=== PATIENT | female | born 1975 | race American Indian/Alaskan Native ===

== ENCOUNTER 2018-03-16 10:18 | Outpatient (CLI) | payer OTHER ==
--- NOTE | 2018-03-16 16:03 | Mammography Report ---
BILATERAL DIGITAL SCREENING MAMMOGRAM with CAD: 03/16/18 CLINICAL: Routine screening. COMPARISON:None available. However, a prior mammogram was apparently done 13 years ago in [facility]. FINDINGS: The breasts are heterogeneously dense, which may obscure small masses. 2 right breast masses with biopsy clips and a left upper asymmetry on the MLO view require comparison with a prior mammogram or additional imaging.No architectural distortion or suspicious calcifications. IMPRESSION: Right masses and left asymmetry requiring further evaluation. BI-RADS CATEGORY: 0 -- Additional Evaluation Required RECOMMENDATION: Comparison with a previous mammogram. We will attempt to obtain a prior mammogram for comparison. If we do not obtain a prior mammogram within 30 days, a revised report will be issued recommending a recall for additional imaging of both breasts. Please be advised that the patient should not schedule an appointment for return until adequate time (at least 2 weeks) has passed for us to obtain the prior mammogram. ACR BI-RADS MAMMOGRAPHIC CODES: 0 = Needs additional imaging evaluation; 1 = Negative; 2 = Benign; 3 = Probably benign; 4 = Suspicious; 5 = Malignant; 6 = Known biopsy-proven malignancy COMMENT: 1. Dense breast tissue, i.e., adenosis, fibrocystic changes, etc., may obscure an underlying neoplasm. 2. Approximately 10% of cancers are not detected with mammography. 3. A negative mammography report should not delay biopsy if a clinically suspicious mass is present. COMMENT: Patient follow-up letters are generated via our [employer] application.
== END 2018-03-16 10:19 | disposition home or self-care (01) ==
LOC: SPVWC 10:18
DX: Z12.31 Encounter for screening mammogram for malignant neoplasm of breast (principal)
CPT/HCPCS: 77067

== ENCOUNTER 2018-06-06 06:10 | Day surgery (SDC) | payer OTHER ==
[2018-06-06] MEDS ORDERED: LACTATED RINGERS 1,000 ML ONE (07:13)
[2018-06-06] MEDS ORDERED: XYLOCAINE MPF 2% ONE (07:24)
[2018-06-06] MEDS ORDERED: DIPRIVAN 10 MG/ML IV ONE (07:24)
[2018-06-06] MEDS ORDERED: SUBLIMAZE ONE (07:24)
[2018-06-06] MEDS ORDERED: DILAUDID IV PRN (07:34)
[2018-06-06] MEDS ORDERED: DEMEROL IV PRN (07:34)
[2018-06-06] MEDS ORDERED: NARCAN 0.4 MG/1 ML IV PRN (07:34)
[2018-06-06] MEDS ORDERED: ZOFRAN IV PRN (07:34)
[2018-06-06] MEDS ORDERED: SUBLIMAZE IV PRN (07:34)
--- NOTE | 2018-06-06 07:34 | Anesthesia Day of Surgery ---
Anesthesia Day of Surgery - Day of Surgery Patient Examined: Yes Patient H&P Reviewed: Yes Patient is NPO: Yes Beta Blockers: No Cardiac Clearance: No Pulmonary Clearance: No
--- NOTE | 2018-06-06 07:34 | Anesthesia Consultation ---
Anesthesia Consult and Med Hx Date of service: 06/06/18 - Airway Anesthetic Teeth Evaluation: Good ROM Head & Neck: Adequate Mental/Hyoid Distance: Adequate Mallampati Class: Class II Intubation Access Assessment: Good - Pulmonary Exam CTA: Yes - Cardiac Exam Cardiac Exam: RRR - Pre-Operative Health Status ASA Pre-Surgery Classification: ASA1 Proposed Anesthetic Plan: General - Central Nervous System Hx Psychiatric Problems: No - Hematic Hx Sickle Cell Disease: Yes (Trait only) - Other Systems Hx Alcohol Use: Yes (Occas) Hx Cancer: No
[2018-06-06] MEDS ORDERED: ROBINUL ONE ×2 (07:35)
[2018-06-06] MEDS ORDERED: LACTATED RINGERS 1,000 ML IV SCH (08:00)
[2018-06-06] MEDS ORDERED: MARCAINE 0.25% INFILTRATI ONE (08:31)
--- NOTE | 2018-06-06 08:36 | Short Stay Summary ---
Short Stay Documentation Date of service: 06/06/18 Narrative H&P: Pt is a 43 year old female who presents for removal of a benign vaginal polyp that was first identified on exam by her primary md. - History Principal diagnosis: Vaginal polyp H&P: obtained from office Past Medical History: No medical history Past Surgical History: No surgical history Social history: - Allergies and Medications Current Medications: Allergies No Known Allergies Allergy (Unverified 06/04/18 18:27) Home Medications Medication Instructions Recorded Confirmed Last Taken Type Naproxen [Naprosyn] 375 mg PO PRN PRN 06/04/18 06/04/18 Unknown History Vit-Fe Fumar-FA [ 1 tab PO QDAY 06/04/18 06/04/18 Unknown History Vitamin] Active Medications Fentanyl (Sublimaze) 50 mcg IV Q5MIN PRN PRN Reason: Pain , Severe (7-10) Stop: 06/06/18 20:00 Hydromorphone HCl (Dilaudid) 0.5 mg IV Q10MIN PRN PRN Reason: Pain , Severe (7-10) Stop: 06/06/18 20:00 Lactated Ringer's (Lactated Ringers) 1,000 mls @ 75 mls/hr IV DIRECT ED Meperidine HCl (Demerol) 25 mg IV ONCE PRN PRN Reason: Shivering Stop: 06/06/18 20:00 Naloxone HCl (Narcan 0.4 Mg/1 Ml) 0.1 mg IV Q2MIN PRN PRN Reason: Res Rate </= 8 or 02 SAT < 92% Ondansetron HCl (Zofran) 4 mg IV ONCE PRN PRN Reason: Nausea And Vomiting - Physical exam General appearance: no acute distress Integumentary: no rash, no growths Lungs: Clear to auscultation, Normal air movement Breasts: deferred Heart: Regular rate, Normal S1, Normal S2 Gastrointestinal: normal, normoactive bowel sounds Female Genitourinary: deferred Extremities: No edema - Brief post op/procedure progress note Date of procedure: 06/06/18 Pre-op diagnosis: Vaginal polyp Post-op diagnosis: same Procedure: Excision of vaginal polyp Anesthesia: GETA Findings: 2.5cm circular vaginal polyp protruding from right side of anterior fornix Surgeon: SHUKRI ZHANG Estimated blood loss: none Pathology: list (vaginal polyp) Specimen disposition: to lab Condition: stable - Hospital course Hospital course: unremarkable - Disposition Condition at discharge: Good Disposition: DC-01 TO HOME OR SELFCARE Short Stay Discharge Plan Activity: no restrictions Weight Bearing Status: Weight Bear as Tolerated Diet: regular Additional Instructions: nothing in the vagina for 10 days Follow up with: SHUKRI ZHANG MD [Staff Physician] - 14 Days Forms: Outpatient Surgery DC Inst. Prescriptions: Ibuprofen 800 mg PO Q6H #30 tablet HYDROcodone/ACETAMINOPHEN [Pollock 5-325 Tablet] 1 each PO Q4H #15 tablet
--- NOTE | 2018-06-06 10:13 | Operative Report ---
Operative Report Operative Report: Preoperative diagnosis: Vaginal polyp Postoperative diagnosis: Same Procedure: Excision of vaginal polyp Surgeon: Dr. Michelle Mendez Anesthesia: Mac EBL: None IV fluids: 800 mL LR Urine output: Approximately 100 mL prior to start of the procedure Specimens: Vaginal polyp Procedure: The patient was taken to the OR with IV running and in place. She was properly identified as herself. She was given anesthesia without difficulty. She was placed in dorsal lithotomy position and prepped and draped in normal sterile fashion. Her bladder was then drained of approximately 100 mL of clear urine. A weighted speculum was placed in the vagina. A narrow Sun was placed in the anterior vaginal wall. The polyp was identified and grasped with an Allis clamp. It was found to be on a small stalk. A Majo clamp was placed across the base and the polyp was excised using the Metzenbaum scissors. A single stitch of 2-0 Vicryl was placed around the excision site and the edges were cauterized with the Bovie. There was excellent hemostasis at the end of this part of the procedure. The patient was then awakened and taken recovery in stable condition. The sponge and instrument counts were correct 2.
[2018-06-06 10:16] VITALS: BP 119/79
--- NOTE | 2018-06-06 10:58 | Post Anesthesia Evaluation ---
- Post Anesthesia Evaluation Patient Participated: Yes Airway Patent: Yes Stable Respiratory Function: Yes Nausea/Vomiting: No Temp > 96.8F: Yes Pain Manageable: Yes Adequeate Hydration: Yes Anesthesia Complications: No
== END 2018-06-06 10:57 | disposition home or self-care (01) ==
LOC: OR 06:10
PROVIDERS: ATTEND Obstetrics & Gynecology
DX: N84.2 Polyp of vagina (principal); G43.909 Migraine, unspecified, not intractable, without status migrainosus; Z79.899 Other long term (current) drug therapy; Z72.89 Other problems related to lifestyle; Z98.890 Other specified postprocedural states
CPT/HCPCS: 57135; 81025; 88305; 88341; 88342; J2704; J3010; J7120

== ENCOUNTER 2021-01-13 14:39 | Emergency (ER) | payer OTHER ==
--- NOTE | 2021-01-13 16:55 | Emergency Department Report ---
ED Female HPI - General Chief complaint: GI Bleed Stated complaint: CLOT Time Seen by Provider: 01/13/21 16:44 Source: patient Mode of arrival: Ambulatory Limitations: No Limitations - History of Present Illness Initial comments: Patient is a 45-year-old female presents emergency room complaints of passing a large blood clot last night. She states that last night she went to the bathroom to urinate and did not have any difficulties. She states shortly after she felt some pressure like she needed to urinate again and went to the bathroom and that is when she passed a large clot. She states that she has been having some intermittent suprapubic pressure but denies any abd pain currently. She states previously she has not been having any vaginal bleeding. she states her last menstrual cycle was approximately 3 weeks ago states that she has a history of heavy vaginal bleeding and irregular cycles. Patient states that she is currently on tamoxifen for breast cancer. She states that she has an appointment on 01/15/[address] Mendez DIRECT SALES REPRESENTATIVE for tubal ligation and uterine ablation. She denies any fever, nausea, vomiting, diarrhea, urinary symptoms, vaginal discharge, back pain. No allergies to medications. - Related Data Home Medications Medication Instructions Recorded Confirmed Last Taken Ferrous Sulfate [Iron 325 MG] 325 mg PO BID 01/13/21 01/13/21 Unknown Tamoxifen Citrate 20 mg PO DAILY 01/13/21 01/13/21 Unknown Allergies Allergy/AdvReac Type Severity Reaction Status Date / Time No Known Allergies Allergy Verified 01/13/21 17:04 ED Review of Systems ROS: Stated complaint: CLOT Other details as noted in HPI Comment: All other systems reviewed and negative ED Past Medical Hx - Past Medical History Hx Sickle Cell Disease: Yes (Trait only) Hx Headaches / Migraines: Yes (Migraines) - Surgical History Hx Breast Surgery: Yes (Right breast cyst removal) - Social History Smoking Status: Never Smoker - Medications Home Medications: Home Medications Medication Instructions Recorded Confirmed Last Taken Type Ferrous Sulfate [Iron 325 MG] 325 mg PO BID 01/13/21 01/13/21 Unknown History Tamoxifen Citrate 20 mg PO DAILY 01/13/21 01/13/21 Unknown History ED Physical Exam - General Limitations: No Limitations General appearance: alert, in no apparent distress - Head Head exam: Present: atraumatic, normocephalic - Eye Eye exam: Present: normal appearance - ENT ENT exam: Present: mucous membranes moist - Respiratory Respiratory exam: Present: normal lung sounds bilaterally. Absent: respiratory distress, wheezes, rales, rhonchi, stridor, chest wall tenderness, accessory muscle use, decreased breath sounds, prolonged expiratory - Cardiovascular Cardiovascular Exam: Present: regular rate, normal rhythm, normal heart sounds. Absent: systolic murmur, diastolic murmur, rubs, gallop - GI/Abdominal GI/Abdominal exam: Present: soft, normal bowel sounds. Absent: distended, tenderness, guarding, rebound, rigid - Neurological Exam Neurological exam: Present: alert, oriented X3 - Psychiatric Psychiatric exam: Present: normal affect, normal mood - Skin Skin exam: Present: warm, dry, intact ED Course Vital Signs 01/13/21 01/13/21 16:41 18:38 Temperature 98.9 F Pulse Rate 65 74 Respiratory 18 18 Rate Blood Pressure 151/84 Blood Pressure 148/84 [Left] O2 Sat by Pulse 100 100 Oximetry ED Medical Decision Making - Lab Data Result diagrams: 01/13/21 17:04 01/13/21 17:04 - Medical Decision Making Patient is a 45-year-old female presents emergency room complaints of passing a large blood clot last night. She states that last night she went to the bathroom to urinate and did not have any difficulties. She states shortly after she felt some pressure like she needed to urinate again and went to the bathroom and that is when she passed a large clot. She states that she has been having some intermittent suprapubic pressure but denies any abd pain currently. She states previously she has not been having any vaginal bleeding. she states her last menstrual cycle was approximately 3 weeks ago states that she has a history of heavy vaginal bleeding and irregular cycles. Patient states that she is currently on tamoxifen for breast cancer. She states that she has an appointment on 01/15/[address] Mendez DIRECT SALES REPRESENTATIVE for tubal ligation and uterine ablation. She denies any fever, nausea, vomiting, diarrhea, urinary symptoms, vaginal discharge, back pain. No allergies to medications. Vitals are stable. No abdominal tenderness on exam. Labs are stable. H&H is normal. hCG quant is less than 2. PT PTT are normal. Discussed the importance of outpatient follow-up and keeping her appointment with her DIRECT SALES REPRESENTATIVE. Discussed return precautions. Advised patient Please follow-up with your DIRECT SALES REPRESENTATIVE. Return to emergency room for any new or worsening symptoms. Critical care attestation.: If time is entered above; I have spent that time in minutes in the direct care of this critically ill patient, excluding procedure time. ED Disposition Clinical Impression: Abnormal uterine bleeding (AUB) Disposition: 01 HOME / SELF CARE / HOMELESS Is pt being admited?: No Does the pt Need Aspirin: No Condition: Stable Instructions: Abnormal Uterine Bleeding Additional Instructions: Please follow-up with your DIRECT SALES REPRESENTATIVE. Return to emergency room for any new or worsening symptoms. Referrals: SHUKRI MENDEZ MD [Staff Physician] - 2-3 Days Time of Disposition: 18:11 Print Language: GIBRALTARIAN
[2021-01-13 17:34] LABS: Basophils % (Auto) 0.6 % (0.0-1.8); Eosinophils # (Auto) 0.1 K/mm3 (0.0-0.4); Eosinophils % (Auto) 1.5 % (0.0-4.3); Hematocrit 36.5 % (30.3-42.9); Hemoglobin 11.8 gm/dl (10.1-14.3); Lymphocytes # (Auto) 1.1 K/mm3 (1.2-5.4); Lymphocytes % (Auto) 18.9 % (13.4-35.0); Mean Corpuscular HGB Conc 32 % (30-34); Mean Corpuscular Volume 83 fl (79-97); Monocytes # (Auto) 0.4 K/mm3 (0.0-0.8); Monocytes % (Auto) 6.7 % (0.0-7.3); Platelet Count 205 K/mm3 (140-440); Red Blood Count 4.41 M/mm3 (3.65-5.03)
[2021-01-13 17:36] LABS: Red Cell Distribution Width 23.5 % (13.2-15.2)
[2021-01-13 17:38] LABS: Alanine Aminotransferase 12 units/L (7-56); Albumin 4.1 g/dL (3.9-5); BUN/Creatinine Ratio 18; Blood Urea Nitrogen 11 mg/dL (7-17); Calcium 8.8 mg/dL (8.4-10.2); Hemolysis Index 5
[2021-01-13 17:56] LABS: INR 1.05 (0.87-1.13)
[2021-01-13 17:57] LABS: Partial Thromboplastin Time 26.3 Sec. (24.2-36.6)
[2021-01-13 18:43] VITALS: BP 148/84
== END 2021-01-13 18:38 | disposition home or self-care (01) ==
LOC: ED 14:39
DX: N93.8 Other specified abnormal uterine and vaginal bleeding (principal); G40.909 Epilepsy, unspecified, not intractable, without status epilepticus; D57.1 Sickle-cell disease without crisis; R10.2 Pelvic and perineal pain
CPT/HCPCS: 36415; 80053; 84702; 85025; 85610; 85730; 99283

== ENCOUNTER 2021-02-05 06:21 | Day surgery (SDC) | payer OTHER ==
[2021-02-03 11:09] LABS: Hematocrit 30.3 % (30.3-42.9); Hemoglobin 9.8 gm/dl (10.1-14.3); Mean Corpuscular HGB Conc 32 % (30-34); Mean Corpuscular Volume 83 fl (79-97); Platelet Count 245 K/mm3 (140-440); Red Blood Count 3.64 M/mm3 (3.65-5.03)
[2021-02-03 11:14] LABS: Red Cell Distribution Width 23.3 % (13.2-15.2)
[~2021-02-05 06:21] MED LIST: LACTATED RINGERS 0 ML ONE
[2021-02-05] MEDS ORDERED: MIDAZOLAM 2 MG/2 ML INJ ONE (07:21)
[2021-02-05] MEDS ORDERED: BUPIVACAINE/PF (0.25%) 2.5 MG/ML 30 ML VIAL INFILTRATI ONE ×2 (07:23→09:15)
--- NOTE | 2021-02-05 07:25 | Anesthesia Consultation ---
Anesthesia Consult and Med Hx Date of service: 02/05/21 - Airway Anesthetic Teeth Evaluation: Good ROM Head & Neck: Adequate Mental/Hyoid Distance: Adequate Mallampati Class: Class II Intubation Access Assessment: Good - Pulmonary Exam CTA: Yes - Cardiac Exam Cardiac Exam: RRR - Pre-Operative Health Status ASA Pre-Surgery Classification: ASA2 Proposed Anesthetic Plan: General - Pulmonary Hx Sleep Apnea: Yes - Central Nervous System Hx Psychiatric Problems: Yes - Hematic Hx Anemia: Yes Hx Sickle Cell Disease: Yes (Trait only) - Other Systems Hx Alcohol Use: Yes (Occas) Hx Cancer: Yes
--- NOTE | 2021-02-05 07:26 | Anesthesia Day of Surgery ---
Anesthesia Day of Surgery - Day of Surgery Patient Examined: Yes Patient H&P Reviewed: Yes Patient is NPO: Yes
[2021-02-05] MEDS ORDERED: ePHEDrine SULFATE 50 MG/1 ML INJ ONE (07:36)
[2021-02-05] MEDS ORDERED: NEOSTIGMINE 10MG/10 ML INJ MDV ONE (07:39)
[2021-02-05] MEDS ORDERED: ROCURONIUM 50 MG/5 ML INJ IV ONE (07:39)
[2021-02-05] MEDS ORDERED: LIDOCAINE MPF (2%) 20 MG/1 ML VIAL 5 ML ONE (07:39)
[2021-02-05] MEDS ORDERED: fentaNYL 100 MCG/2 ML INJ ONE (07:39)
[2021-02-05] MEDS ORDERED: SUCCINYLCHOLINE CHLORIDE 200 MG/10 ML INJ MDV ONE (07:39)
[2021-02-05] MEDS ORDERED: GLYCOPYRROLATE 0.4 MG/2 ML INJ ONE (07:39)
[2021-02-05] MEDS ORDERED: dexAMETHasone 20 MG/5 ML VIAL ONE (07:39)
[2021-02-05] MEDS ORDERED: PHENYLEPHRINE/NS 1,000 MCG/10 ML SYRINGE (OR USE) IV ONE (07:39)
[2021-02-05] MEDS ORDERED: propofoL 200 MG/20 ML VIAL IV ONE (07:39)
[2021-02-05] MEDS ORDERED: CELECOXIB 200 MG CAP PO NR (08:00)
[2021-02-05] MEDS ORDERED: ACETAMINOPHEN 500 MG TAB PO SCH (08:00)
[2021-02-05] MEDS ORDERED: MAGNESIUM OXIDE 400 MG TAB PO SCH (08:00)
[2021-02-05] MEDS ORDERED: ONDANSETRON 4 MG/2 ML INJ IV PRN (08:00)
[2021-02-05] MEDS ORDERED: MIDAZOLAM 2 MG/2 ML INJ IV NR (08:00)
[2021-02-05] MEDS ORDERED: ceFAZolin/Water 2 GM/20 ML 2 GM/20 ML SYRINGE IV NR (08:00)
--- NOTE | 2021-02-05 08:25 | Short Stay Summary ---
Short Stay Documentation Date of service: 02/05/21 Narrative H&P: Pt is a 45 year old FEMALE who presents today for elective sterilization and endometrial ablation. Pt has been having issues with heavy and prolonged menses. - History Principal diagnosis: Menorrhagia and undesired fertility H&P: obtained from office Past Medical History: anemia Past Surgical History: Other (cosmetic surgery, vaginal polypectomy) Social history: - Allergies and Medications Current Medications: Allergies No Known Allergies Allergy (Verified 02/02/21 17:41) Home Medications Medication Instructions Recorded Confirmed Last Taken Type Ferrous Sulfate [Iron 325 MG] 325 mg PO BID 01/13/21 02/02/21 Unknown History Tamoxifen Citrate 20 mg PO DAILY 01/13/21 02/02/21 Unknown History Active Medications Acetaminophen (Acetaminophen 500 Mg Tab) 1,000 mg PO ONCE ONE Stop: 02/05/21 07:38 Celecoxib (Celecoxib 200 Mg Cap) 400 mg PO PREOP NR Hydromorphone HCl (Hydromorphone 1 Mg/1 Ml Inj) 0.25 mg IV Q10MIN PRN PRN Reason: Pain, Moderate (4-6) Hydromorphone HCl (Hydromorphone 1 Mg/1 Ml Inj) 0.5 mg IV Q10MIN PRN PRN Reason: Pain , Severe (7-10) Lactated Ringer's (Lactated Ringers) 1,000 mls @ 125 mls/hr IV DIRECT ED Magnesium Oxide (Magnesium Oxide 400 Mg Tab) 400 mg PO ONCE ONE Stop: 02/05/21 07:38 Midazolam HCl (Midazolam 2 Mg/2 Ml Inj) 2 mg IV PREOP NR Stop: 02/05/21 23:59 Ondansetron HCl (Ondansetron 4 Mg/2 Ml Inj) 4 mg IV ONCE PRN PRN Reason: Nausea And Vomiting - Physical exam General appearance: no acute distress Integumentary: no rash, no growths HEENT: Atraumatic Lungs: Clear to auscultation, Normal air movement Breasts: deferred Heart: Regular rate, Normal S1, Normal S2 Gastrointestinal: normal, normoactive bowel sounds Female Genitourinary: deferred Rectal Exam: deferred Extremities: no ischemia - Brief post op/procedure progress note Date of procedure: 02/05/21 Pre-op diagnosis: Undesired fertility, menorrhagia Post-op diagnosis: same Procedure: Bilateral salpingectomy, Endometrial Ablation Anesthesia: GETA Findings: Slightly enlarged uterus with normal cavity. Normal appearing tubes and ovaries Surgeon: SHUKRI ZHANG Estimated blood loss: minimal Pathology: list (Bilateral fallopian tubes, ECC) Specimen disposition: to lab Condition: stable - Hospital course Hospital course: Unremarkable - Disposition Condition at discharge: Stable Disposition: 01 HOME / SELF CARE / HOMELESS Short Stay Discharge Plan Activity: advance as tolerated Weight Bearing Status: Weight Bear as Tolerated Diet: regular Wound: open to air Additional Instructions: Nothing in the vagina for 4 weeks Follow up with: SHUKRI ZHANG MD [Staff Physician] - 14 Days Prescriptions: Ibuprofen [Motrin 800 MG tab] 800 mg PO Q8HR PRN #40 tablet PRN Reason: Pain, Moderate (4-6) HYDROcodone/APAP 5-325 [[place] 5/325] 1 each PO Q6HR PRN #20 tablet PRN Reason: Pain
[2021-02-05] MEDS ORDERED: HYDROmorphone 1 MG/1 ML INJ IV PRN (09:00)
[2021-02-05] MEDS ORDERED: LACTATED RINGERS 1,000 ML IV SCH (09:00)
[2021-02-05] MEDS ORDERED: SODIUM CHLORIDE 0.9% IRRIG SOLN 2000 ML IR ONE (09:15)
[2021-02-05] MEDS: HYDROmorphone 1 MG/1 ML INJ IV PRN ×2 (10:15→10:25)
--- NOTE | 2021-02-05 10:22 | Operative Report ---
Operative Report Operative Report: Preoperative diagnosis: 1. Undesired fertility 2. Menorrhagia Postoperative diagnosis: Same Procedure: 1 bilateral laparoscopic salpingectomy 2. NovaSure endometrial ablation Surgeon: Michelle Mnedez Anesthesia: General EBL: Minimal IV fluids: 1000 mL Urine output: 150 mL Findings: Slightly enlarged but normal uterus, normal tubes and ovaries Specimens: Portion of right and left fallopian tube, endometrial curetting Complications: None The patient was properly identified as herself. She was then taken to the OR with IV running and in place. She was given general anesthesia without difficulty. She was placed in a dorsal lithotomy position. She was then prepped and draped in normal sterile fashion. Attention was turned to the patient's vagina. Her bladder was drained of clear urine with a red rubber catheter. The speculum was then placed the patient's vagina. The cervix was visualized and grasped with tenaculum. The acorn cannula was then inserted. The surgeon's gloves were changed and attention turned to the patient's abdomen. A small incision was made in the patient's umbilicus incision a 5 mm trocar was placed. The laparoscope confirmed intra-abdominal placement. The abdomen was insufflated with CO2 gas to approximately 25 mmHg. Both fallopian tubes were identified. With direct visualization a second trocar was placed through an incision in the left lower quadrant. Both tubes were found and followed out to the fimbriated ends. Each tube was cauterized at the portion nearest the cornua, then cauterized across the broad ligament until the tube was completely detached. There was excellent hemostasis at the end of this portion of the procedure. Each tube was handed off for pathology. At this point the abdomen was deflated. All instruments were then removed from the abdomen. The incisions were then closed with 4-0 Monocryl. The incisions were also injected with quarter percent Marcaine. At this point attention is turned to the patient's vagina once again. The uterus was gently sounded to approximately 10 cm in length with a cervical length of 4 cm. The cervix was gently dilated and the scope was introduced to reveal essentially normal uterine anatomy with no obvious lesions. A mild curettage was performed at this point. Following this, the NovaSure device was introduced into the uterine cavity, with a length of 6 cm width of 4.3 cm. The cavity assessment was cleared and the procedure was carried out for approximately 1 minutes at 142 W of power. Once the ablation device was removed from the uterus, a second look hysteroscopy was performed which revealed adequate desiccation of tissue throughout the uterine cavity. At this point all instruments were removed from the patient's vagina as well. The patient tolerated the procedure well she was then awakened and taken recovery in stable condition. Sponge needle and instrument counts were correct 2.
[2021-02-05 11:29] VITALS: BP 124/82
--- NOTE | 2021-02-05 16:42 | Post Anesthesia Evaluation ---
- Post Anesthesia Evaluation Patient Participated: Yes Airway Patent: Yes Stable Respiratory Function: Yes Nausea/Vomiting: No Temp > 96.8F: Yes Pain Manageable: Yes Adequeate Hydration: Yes Anesthesia Complications: No Block Receding Appropriately: Not Applicable Patient on Ventilator: No
== END 2021-02-05 11:45 | disposition home or self-care (01) ==
LOC: OR 06:21
PROVIDERS: ATTEND Obstetrics & Gynecology
DX: N92.0 Excessive and frequent menstruation with regular cycle (principal); D50.0 Iron deficiency anemia secondary to blood loss (chronic); G47.30 Sleep apnea, unspecified; F41.9 Anxiety disorder, unspecified; Z85.3 Personal history of malignant neoplasm of breast; Z79.899 Other long term (current) drug therapy; Z98.890 Other specified postprocedural states; Z20.822 Contact with and (suspected) exposure to COVID-19
CPT/HCPCS: 36415; 58353; 58670; 84703; 85027; 88302; 88305; J0330; J0690; J1100; J1170; J1815; J2250; J2370; J2405; J2704; J2710; J3010; J3490; J7120; U0003